=== PATIENT | female | born 1970 | race Caucasian/White ===

== ENCOUNTER 2017-03-04 20:41 | Emergency (ER) | payer OTHER ==
[~2017-03-04] VITALS: Ht 172.7 cm; Wt 95.3 kg
[2017-03-04 21:59] LABS: Basophils # (auto) 0 uL; Eosinophils # (auto) 0 uL; Hemoglobin 11.3 g/dL (12.2-16.2); Mean Corpuscular Volume 77.2 fL (80.0-100.0); Monocytes # (auto) 0.6 uL; Neutrophils # (auto) 2.6 uL; Nucleated Red Blood Cells % 0.2 %; White Blood Cell 4.1 10^3/uL (4.4-10.8)
[2017-03-04 22:00] LABS: Basophils % (auto) 0.7 % (0.0-2.0); Eosinophils % (auto) 0.5 % (0.0-7.0); Hematocrit 34.9 % (36.0-46.0); Lymphocytes # (auto) 0.9 uL; Lymphocytes % (auto) 21.2 % (10.0-50.0); Mean Corpuscular Hgb Conc. 32.4 g/dL (32.0-36.0); Monocytes % (auto) 14.1 % (0.0-12.0); Neutrophils % (auto) 63.5 % (37.0-80.0); Platelet Count (auto) 239 10^3/uL (140-450); Red Blood Cells 4.53 10^6/uL (4.0-5.20)
[2017-03-04] MEDS ORDERED: SODIUM CHLORIDE 0.9% 1,000 ML IV ONE (22:15)
[2017-03-04] MEDS ORDERED: PROMETHAZINE W/CODEINE 5 ML ORAL SYRUP PO ONE (22:15)
[2017-03-04 22:16] LABS: Alanine Aminotransferase 19 U/L (13-56); Albumin 3.7 g/dL (3.4-5.0); Aspartate Aminotransferase 16 U/L (15-37); BUN/Creatinine Ratio 14.5; Blood Urea Nitrogen 11 mg/dL (7-18); Calcium 8.6 mg/dL (8.5-10.1); Carbon Dioxide 24 mmol/L (21-32); GFR African American 105 mL/min; GFR Non-African American 87 mL/min; Glucose 81 mg/dL (74-106); Magnesium 1.8 mg/dL (1.6-2.6)
[2017-03-04 22:18] LABS: INR 1.03 (0.9-1.15); Partial Thromboplastin Time 28.2 sec (22.64-33.71); Prothrombin Time 11.2 sec (9.37-12.3)
[2017-03-04 22:22] LABS: Alkaline Phosphatase 88 U/L (45-117); Bilirubin, Total 0.2 mg/dL (0.2-1.0); Chloride 107 mmol/L (98-107); Potassium 3.2 mmol/L (3.5-5.1); Sodium 140 mmol/L (136-145); Total Protein 7.4 g/dL (6.4-8.2)
[2017-03-04 22:35] LABS: Anion Gap 10 (5-15)
[2017-03-04] MEDS ORDERED: ACETAMINOPHEN 325 MG TAB PO ONE (23:45)
[2017-03-05 00:04] LABS: Urine Bacteria None Seen /hpf (None Seen); Urine WBC None Seen /hpf (0 - 5)
[2017-03-05] MEDS ORDERED: ACETAMINOPHEN 325 MG TAB PO ONE (00:15)
[2017-03-05] MEDS ORDERED: LEVOFLOXACIN 750MG 150 ML IV ONE (00:15)
[2017-03-05 00:38] LABS: Urine Blood Normal /uL (Negative); Urine Specific Gravity 1.008 (1.001-1.035)
[2017-03-05 01:56] VITALS: BP 142/83
[2017-03-05] MEDS ORDERED: PROMETHAZINE W/CODEINE 5 ML ORAL SYRUP PO ONE (02:15)
== END 2017-03-05 03:42 | disposition home or self-care (01) ==
LOC: EDBD 20:41 → ER 20:41
DX: J45.901 Unspecified asthma with (acute) exacerbation (principal); J20.9 Acute bronchitis, unspecified
CPT/HCPCS: 36415; 71045; 80053; 81001; 83735; 83880; 84484; 85025; 85379; 85610; 85730; 87040; 87086; 93005; 94761; 96361; 96365; 96366; 99285; J1956

== ENCOUNTER 2019-03-29 03:23 | Emergency (ER) | payer OTHER ==
[~2019-03-29] VITALS: Ht 170.2 cm; Wt 99.8 kg
[2019-03-29 05:51] LABS: Urine Bacteria FEW /hpf (None Seen); Urine Blood Negative /uL (Negative); Urine Mucus MODERATE (None Seen); Urine Specific Gravity 1.029 (1.001-1.035); Urine WBC 9 /hpf (0 - 5)
[2019-03-29] MEDS ORDERED: LORazepam 2MG/ML-1ML VIAL IM ONE (06:00)
[2019-03-29] MEDS ORDERED: HALOPERIDOL LACTATE 5 MG/ML INJ VIAL IM ONE (06:00)
[2019-03-29] MEDS ORDERED: diphenhdrAMINE HCL 50 MG/1 ML VL IM ONE (06:00)
[2019-03-29 06:06] LABS: Alcohol, Urine < 3.0 mg/dL (0-5); Amphetamine Screen, Urine NEGATIVE (NEGATIVE); Barbiturate Scree,Urine NEGATIVE (NEGATIVE); Benzodiazephine Screen, Urine POSITIVE (NEGATIVE); Cannabinoid Screen, Urine NEGATIVE (NEGATIVE); Cocaine Screen, Urine NEGATIVE (NEGATIVE); Opiate Scree,Urine NEGATIVE (NEGATIVE); Phencyclidine Screen, Urine NEGATIVE (NEGATIVE)
[2019-03-29 06:40] LABS: Basophils # (auto) 0 uL; Lymphocytes # (auto) 1.9 uL; Monocytes # (auto) 0.7 uL; Red Blood Cells 5.15 10^6/uL (4.0-5.20); White Blood Cell 7.2 10^3/uL (4.4-10.8)
[2019-03-29 06:42] LABS: Basophils % (auto) 0.3 % (0.0-2.0); Eosinophils # (auto) 0 uL; Eosinophils % (auto) 0.6 % (0.0-7.0); Hematocrit 40.3 % (36.0-46.0); Hemoglobin 13.5 g/dL (12.2-16.2); Mean Corpuscular Hemoglobin 26.1 pg (28.0-32.0); Mean Corpuscular Hgb Conc. 33.4 g/dL (32.0-36.0); Mean Corpuscular Volume 78.3 fL (80.0-100.0); Monocytes % (auto) 10.1 % (0.0-12.0); Neutrophils # (auto) 4.6 uL; Nucleated Red Blood Cells % 0.1 %; Platelet Count (auto) 251 10^3/uL (140-450); Red Cell Distribution Width 17.7 % (11.8-14.3)
[2019-03-29 06:55] LABS: Alanine Aminotransferase 18 U/L (13-56); Albumin 3.6 g/dL (3.4-5.0); Anion Gap 10 (5-15); Aspartate Aminotransferase 9 U/L (15-37); BUN/Creatinine Ratio 13.2; Blood Alcohol < 3.0 mg/dL (0-5); Blood Urea Nitrogen 12 mg/dL (7-18); Calcium 8.4 mg/dL (8.5-10.1); Carbon Dioxide 21 mmol/L (21-32); Chloride 110 mmol/L (98-107); GFR African American 85 mL/min; GFR Non-African American 70 mL/min; Glucose 96 mg/dL (74-106); Potassium 3.9 mmol/L (3.5-5.1); Sodium 141 mmol/L (136-145)
[2019-03-29 06:57] LABS: Salicylate < 1.7 mg/dL (2.8-20.0)
[2019-03-29 06:58] LABS: Alkaline Phosphatase 94 U/L (45-117); Bilirubin, Total 0.3 mg/dL (0.2-1.0); Total Protein 7.6 g/dL (6.4-8.2)
[2019-03-29 07:17] LABS: Acetaminophen < 2.0 ug/mL (10-30)
[2019-03-29] MEDS ORDERED: cefTRIAXone 1GM/50ML D5W 50 ML IV ONE (07:45)
[2019-03-29] MEDS ORDERED: SODIUM CHLORIDE 0.9% 1,000 ML IV ONE (12:15)
[2019-03-29 13:01] VITALS: BP 101/65
== END 2019-03-29 13:29 | disposition home or self-care (01) ==
LOC: EDBD 03:23 → ER 03:23
DX: G47.00 Insomnia, unspecified (principal); N39.0 Urinary tract infection, site not specified; G25.81 Restless legs syndrome
CPT/HCPCS: 36415; 70450; 71045; 80053; 80307; 80320; 80329; 81001; 81025; 85025; 96365; 96372; 99284; J0696; J1200; J1630; J2060

== ENCOUNTER 2020-03-30 14:52 | Inpatient (IN) | payer MEDICAID, OTHER ==
[~2020-03-30] VITALS: Ht 175.3 cm; Wt 110.4 kg
[2020-03-30] MEDS ORDERED: HYDROcodone-ACET 7.5/325MG TAB PO ONE (17:45)
[2020-03-30] MEDS ORDERED: diazePAM 5 MG TAB PO ONE ×2 (17:45→20:45)
[2020-03-30] MEDS ORDERED: oxyCODONE ER 10 MG TAB PO ONE (17:45)
[2020-03-30] MEDS ORDERED: LIDOCAINE 5% TOPICAL PATCH TOP ONE (20:45)
[2020-03-30] MEDS ORDERED: OXYCODONE W/ ACETAMINOPHEN 5/325MG TABLET PO ONE (20:45)
[2020-03-30 23:42] LABS: Basophils # (auto) 0 10 ^3/uL (0-0.2); Basophils % (auto) 0.3 % (0.0-2.0); Eosinophils # (auto) 0.1 10 ^3/uL (0-0.8); Hematocrit 39.3 % (36.0-46.0); Hemoglobin 13.3 g/dL (12.2-16.2); Mean Corpuscular Hemoglobin 29.5 pg (28.0-32.0); Mean Corpuscular Hgb Conc. 33.8 g/dL (32.0-36.0); Mean Corpuscular Volume 87.2 fL (80.0-100.0); Monocytes # (auto) 0.5 10 ^3/uL (0-1.3); Monocytes % (auto) 9.6 % (0.0-12.0); Neutrophils % (auto) 53.1 % (37.0-80.0); Nucleated Red Blood Cells % 0.2 %; Platelet Count (auto) 194 10^3/uL (140-450); Red Blood Cells 4.51 10^6/uL (4.0-5.20); Red Cell Distribution Width 13.9 % (11.8-14.3); White Blood Cell 5.7 10^3/uL (4.4-10.8)
[2020-03-31 00:02] LABS: Albumin 3.5 g/dL (3.4-5.0); Calcium 8.4 mg/dL (8.5-10.1); Potassium 3.9 mmol/L (3.5-5.1)
[2020-03-31 00:06] LABS: BUN/Creatinine Ratio 25.6; Bilirubin, Total 0.3 mg/dL (0.2-1.0); Total Protein 7.3 g/dL (6.4-8.2)
[2020-03-31 00:15] VITALS: BP 114/71
[2020-03-31] MEDS: BACLOFEN 10 MG TAB PO SCH ×4 (00:36→14:00)
[2020-03-31] MEDS: MORPHINE SULFATE 4 MG/ML SYR/VIAL IV PRN ×4 (00:36→17:17)
[2020-03-31] MEDS: HYDROcodone-ACET 5/325MG TAB PO PRN ×5 (01:52→20:22)
[2020-03-31] MEDS ORDERED: ZINC220C10 PO (02:41)
[2020-03-31] MEDS ORDERED: CLON1TAB PO (02:41)
[2020-03-31] MEDS ORDERED: CARI-277 PO (02:41)
[2020-03-31] MEDS ORDERED: GABA600T PO (02:41)
[2020-03-31] MEDS ORDERED: ASCO500C5 OR (02:42)
[2020-03-31] MEDS ORDERED: VITA80009 PO (02:42)
[2020-03-31] MEDS ORDERED: INFLUENZA QUAD 2020-2021 0.5 ML SYRG IM ONE (03:15)
[2020-03-31 05:00] VITALS: BP 129/66
[2020-03-31] MEDS: LIDOCAINE 5% TOPICAL PATCH TOP SCH (08:16)
[2020-03-31] MEDS: FAMOTIDINE 20 MG TAB PO SCH ×2 (08:16→22:25)
[2020-03-31] MEDS: CYCLOBENZAPRINE HCL 10 MG TAB PO PRN (14:06)
[2020-03-31] MEDS: ONDANSETRON HCL 4 MG/2 ML VIAL IV PRN (17:17)
[2020-03-31 19:31] LABS: Urine Bacteria FEW /hpf (None Seen); Urine Blood Negative /uL (Negative); Urine Mucus FEW (None Seen); Urine Specific Gravity 1.032 (1.001-1.035); Urine WBC 2 /hpf (0 - 5)
[2020-03-31 19:49] LABS: Alcohol, Urine < 3.0 mg/dL (0-10); Amphetamine Screen, Urine NEGATIVE (NEGATIVE); Barbiturate Scree,Urine NEGATIVE (NEGATIVE); Benzodiazephine Screen, Urine POSITIVE (NEGATIVE); Cannabinoid Screen, Urine NEGATIVE (NEGATIVE); Cocaine Screen, Urine NEGATIVE (NEGATIVE); Opiate Scree,Urine POSITIVE (NEGATIVE); Phencyclidine Screen, Urine NEGATIVE (NEGATIVE)
[2020-04-01] MEDS: TEMAZEPAM 15 MG CAP PO PRN (00:27)
[2020-04-01] MEDS: HYDROcodone-ACET 5/325MG TAB PO PRN ×4 (00:27→16:24)
[2020-04-01] MEDS: MORPHINE SULFATE 4 MG/ML SYR/VIAL IV PRN ×6 (00:46→23:46)
[2020-04-01 01:00] VITALS: BP 145/68
[2020-04-01] MEDS ORDERED: GABA-339 PO (04:37)
[2020-04-01 05:00] VITALS: BP 148/100
[2020-04-01] MEDS: BACLOFEN 10 MG TAB PO SCH ×3 (05:57→21:10)
[2020-04-01 08:00] VITALS: BP 148/50
[2020-04-01] MEDS: LIDOCAINE 5% TOPICAL PATCH TOP SCH (10:07)
[2020-04-01] MEDS: FAMOTIDINE 20 MG TAB PO SCH ×2 (10:07→21:09)
[2020-04-01] MEDS ORDERED: SENNA 8.6 MG TAB PO ONE (11:15)
[2020-04-01] MEDS ORDERED: DOCUSATE SOD 100 MG CAP PO ONE (11:15)
[2020-04-01] MEDS ORDERED: GABAPENTIN 400 MG CAP PO ONE (11:15)
[2020-04-01 16:00] VITALS: BP 114/89
[2020-04-01 20:52] VITALS: BP 146/62
[2020-04-01] MEDS: GABAPENTIN 400 MG CAP PO SCH (21:09)
[2020-04-01] MEDS: DOCUSATE SOD 100 MG CAP PO SCH (21:09)
[2020-04-01] MEDS: HYDROcodone-ACET 10/325MG TAB PO PRN (21:09)
[2020-04-01] MEDS: SENNA 8.6 MG TAB PO SCH (21:09)
[2020-04-01 22:14] VITALS: BP 121/80
[2020-04-02] MEDS: TEMAZEPAM 15 MG CAP PO PRN (00:35)
[2020-04-02] MEDS: HYDROcodone-ACET 10/325MG TAB PO PRN ×5 (01:34→20:40)
[2020-04-02] MEDS: MORPHINE SULFATE 4 MG/ML SYR/VIAL IV PRN ×2 (04:21→08:25)
[2020-04-02 05:00] VITALS: BP 125/81
[2020-04-02] MEDS: BACLOFEN 10 MG TAB PO SCH ×3 (05:58→22:15)
[2020-04-02 09:00] VITALS: BP 136/97
[2020-04-02] MEDS: CYCLOBENZAPRINE HCL 10 MG TAB PO PRN ×2 (09:59→20:04)
[2020-04-02] MEDS: LIDOCAINE 5% TOPICAL PATCH TOP SCH (09:59)
[2020-04-02] MEDS: DOCUSATE SOD 100 MG CAP PO SCH ×2 (09:59→22:26)
[2020-04-02] MEDS: GABAPENTIN 400 MG CAP PO SCH ×2 (09:59→22:15)
[2020-04-02] MEDS: FAMOTIDINE 20 MG TAB PO SCH ×2 (09:59→22:26)
[2020-04-02] MEDS: clonazePAM 0.5 MG TAB PO PRN ×2 (12:52→23:02)
[2020-04-02] MEDS: MORPHINE SULF INJ 2 MG/ML SYRINGE 1ML IV PRN ×3 (12:53→21:35)
[2020-04-02 13:00] VITALS: BP 133/98
[2020-04-02 16:40] VITALS: BP 139/98
[2020-04-02 20:00] VITALS: BP 130/94
[2020-04-02 22:00] VITALS: BP 130/94
[2020-04-02] MEDS: SENNA 8.6 MG TAB PO SCH (22:27)
[2020-04-03] MEDS: TEMAZEPAM 15 MG CAP PO PRN (00:06)
[2020-04-03] MEDS: HYDROcodone-ACET 10/325MG TAB PO PRN ×4 (00:53→14:32)
[2020-04-03] MEDS: MORPHINE SULF INJ 2 MG/ML SYRINGE 1ML IV PRN ×3 (04:08→12:18)
[2020-04-03 04:51] VITALS: BP 116/74
[2020-04-03] MEDS: BACLOFEN 10 MG TAB PO SCH (06:11)
[2020-04-03] MEDS: clonazePAM 0.5 MG TAB PO PRN ×2 (06:59→21:14)
[2020-04-03 09:00] VITALS: BP 125/75
[2020-04-03] MEDS: GABAPENTIN 400 MG CAP PO SCH ×2 (09:42→22:13)
[2020-04-03] MEDS: LIDOCAINE 5% TOPICAL PATCH TOP SCH (09:42)
[2020-04-03] MEDS: DOCUSATE SOD 100 MG CAP PO SCH ×2 (09:42→22:13)
[2020-04-03] MEDS: FAMOTIDINE 20 MG TAB PO SCH ×2 (09:42→22:14)
[2020-04-03] MEDS: CYCLOBENZAPRINE HCL 10 MG TAB PO PRN (12:18)
[2020-04-03] MEDS ORDERED: HYDROmorphone HCL 2 MG/ML VL IV PRN (12:30)
[2020-04-03] MEDS ORDERED: BACLOFEN 10 MG TAB PO PRN (13:00)
[2020-04-03 13:07] VITALS: BP 114/88
[2020-04-03] MEDS: HYDROmorphone HCL 2 MG/ML VL IV PRN ×4 (13:17→23:14)
[2020-04-03] MEDS: POLYETHYLENE GLYCOL 17 GM PWDR PO PRN (16:01)
[2020-04-03 20:07] VITALS: BP 117/94
[2020-04-03 22:00] VITALS: BP 117/94
[2020-04-03] MEDS ORDERED: oxyCODONE ER 10 MG TAB PO SCH (22:00)
[2020-04-03] MEDS: SENNA 8.6 MG TAB PO SCH (22:13)
[2020-04-03] MEDS: oxyCODONE ER 20 MG TAB PO SCH (22:13)
[2020-04-04] MEDS: TEMAZEPAM 15 MG CAP PO PRN ×2 (01:08→23:30)
[2020-04-04] MEDS: HYDROmorphone HCL 2 MG/ML VL IV PRN ×7 (03:52→23:30)
[2020-04-04 05:00] VITALS: BP 116/87
[2020-04-04] MEDS: clonazePAM 0.5 MG TAB PO PRN ×3 (05:20→21:51)
[2020-04-04] MEDS: HYDROcodone-ACET 10/325MG TAB PO PRN ×3 (06:05→18:30)
[2020-04-04 09:00] VITALS: BP 114/72
[2020-04-04] MEDS: DOCUSATE SOD 100 MG CAP PO SCH ×2 (10:14→21:37)
[2020-04-04] MEDS: oxyCODONE ER 20 MG TAB PO SCH ×2 (10:14→21:37)
[2020-04-04] MEDS: LIDOCAINE 5% TOPICAL PATCH TOP SCH (10:15)
[2020-04-04] MEDS: FAMOTIDINE 20 MG TAB PO SCH ×2 (10:15→21:37)
[2020-04-04] MEDS: GABAPENTIN 400 MG CAP PO SCH ×2 (10:15→21:37)
[2020-04-04] MEDS: POLYETHYLENE GLYCOL 17 GM PWDR PO PRN (10:20)
[2020-04-04 13:00] VITALS: BP 127/76
[2020-04-04 17:29] VITALS: BP 103/67
[2020-04-04] MEDS: SENNA 8.6 MG TAB PO SCH (21:38)
[2020-04-04 22:00] VITALS: BP_SYST 100; BP_SYST 135; BP_DIAS 62; BP_DIAS 71
[2020-04-04] MEDS: ONDANSETRON HCL 4 MG/2 ML VIAL IV PRN (23:08)
[2020-04-05] MEDS: HYDROmorphone HCL 2 MG/ML VL IV PRN ×7 (02:17→22:01)
[2020-04-05 05:00] VITALS: BP 136/79
[2020-04-05] MEDS: HYDROcodone-ACET 10/325MG TAB PO PRN (05:14)
[2020-04-05 09:00] VITALS: BP 116/82
[2020-04-05] MEDS: LIDOCAINE 5% TOPICAL PATCH TOP SCH (10:24)
[2020-04-05] MEDS: ONDANSETRON HCL 4 MG/2 ML VIAL IV PRN ×2 (10:24→18:08)
[2020-04-05] MEDS: DOCUSATE SOD 100 MG CAP PO SCH (10:29)
[2020-04-05] MEDS: GABAPENTIN 400 MG CAP PO SCH ×2 (10:29→22:00)
[2020-04-05] MEDS: oxyCODONE ER 20 MG TAB PO SCH ×2 (10:29→22:01)
[2020-04-05] MEDS: FAMOTIDINE 20 MG TAB PO SCH ×2 (10:29→22:01)
[2020-04-05] MEDS ORDERED: FLEET ENEMA(ADULT) 135 ML PR PRN (11:15)
[2020-04-05] MEDS ORDERED: LACTULOSE 20Gm/30ML SOLN PO ONE (11:15)
[2020-04-05 13:00] VITALS: BP 120/77
[2020-04-05 17:00] VITALS: BP 125/90
[2020-04-05] MEDS: clonazePAM 0.5 MG TAB PO PRN (17:14)
[2020-04-05 22:00] VITALS: BP 112/71
[2020-04-05] MEDS: POLYETHYLENE GLYCOL 17 GM PWDR PO SCH (22:01)
[2020-04-05] MEDS: SENNA 8.6 MG TAB PO SCH (22:01)
[2020-04-06] MEDS: HYDROmorphone HCL 2 MG/ML VL IV PRN ×4 (01:03→11:15)
[2020-04-06 05:00] VITALS: BP 130/77
[2020-04-06] MEDS: ONDANSETRON HCL 4 MG/2 ML VIAL IV PRN ×3 (06:56→15:25)
[2020-04-06 09:00] VITALS: BP 115/73
[2020-04-06] MEDS: clonazePAM 0.5 MG TAB PO PRN (09:16)
[2020-04-06] MEDS: POLYETHYLENE GLYCOL 17 GM PWDR PO SCH (10:00)
[2020-04-06] MEDS: LIDOCAINE 5% TOPICAL PATCH TOP SCH (10:00)
[2020-04-06] MEDS: oxyCODONE ER 20 MG TAB PO SCH (10:00)
[2020-04-06] MEDS ORDERED: CALC1TAB64 PO (10:13)
[2020-04-06] MEDS ORDERED: ACETAMINOPHEN 500 MG TAB PO ONE (11:00)
[2020-04-06] MEDS: FAMOTIDINE 20 MG TAB PO SCH (11:00)
[2020-04-06] MEDS: GABAPENTIN 400 MG CAP PO SCH (11:00)
[2020-04-06 13:00] VITALS: BP 112/59
== END 2020-04-06 16:29 | disposition home or self-care (01) | DRG 347 ==
LOC: ER 14:52 → EDBD 14:52 → OVERFLOW 23:18 → EAST 04-01 04:18
PROVIDERS: ADMIT Nurse Practitioner; ATTEND Internal Medicine
DX: M48.54XA Collapsed vertebra, not elsewhere classified, thoracic region, initial encounter for fracture (principal); S39.012A Strain of muscle, fascia and tendon of lower back, initial encounter; F11.20 Opioid dependence, uncomplicated; G89.29 Other chronic pain; M47.816 Spondylosis without myelopathy or radiculopathy, lumbar region; Z20.822 Contact with and (suspected) exposure to COVID-19; F41.9 Anxiety disorder, unspecified; M81.0 Age-related osteoporosis without current pathological fracture; M25.78 Osteophyte, vertebrae; M48.061 Spinal stenosis, lumbar region without neurogenic claudication; M51.36 Other intervertebral disc degeneration, lumbar region; Z88.8 Allergy status to other drugs, medicaments and biological substances; X50.0XXA Overexertion from strenuous movement or load, initial encounter; Y93.89 Activity, other specified; Y92.89 Other specified places as the place of occurrence of the external cause; Y99.8 Other external cause status; Z79.899 Other long term (current) drug therapy; Z88.6 Allergy status to analgesic agent; Z23 Encounter for immunization
CPT/HCPCS: 36415; 72131; 72146; 72148; 80053; 80307; 81001; 85025; 87426; 97110; 97116; 97163; 97530; G0378; J2405